=== PATIENT | female | born 1980 | race Caucasian/White ===

== ENCOUNTER 2023-10-11 06:04 | Day surgery (SDC) | payer BC, SELFPAY ==
[2023-10-11 06:21] VITALS: BMI 31.3
[2023-10-11 06:23] VITALS: BP 148/88
[2023-10-11] MEDS: NORMOSOL-R 1000 IV (06:31)
[2023-10-11 08:20] VITALS: BP 118/90
[2023-10-11 08:30] VITALS: BP 112/72
[2023-10-11 08:45] VITALS: BP 120/86
[2023-10-11 09:00] VITALS: BP 121/73
== END 2023-10-11 09:20 | disposition home or self-care (01) ==
LOC: SDS 06:04
PROVIDERS: ATTENDING PHYSICIAN Surgery
DX: K60.1 Chronic anal fissure (principal); K64.4 Residual hemorrhoidal skin tags; K64.8 Other hemorrhoids
CPT/HCPCS: 46200